=== PATIENT | male | born 1980 | race Caucasian/White ===

== ENCOUNTER 2017-07-12 12:49 | Observation (INO) | payer MEDICAID, SELFPAY ==
[2017-07-12 13:16] VITALS: BMI 24.8
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
[2017-07-12 13:24] VITALS: BMI 24.8
[2017-07-12 13:30] VITALS: BP 114/79; PULSE 54; RESP 18; TEMP 36.7; O2SAT 100
[2017-07-12] MEDS: Buprenorphine HCl 2 MG TAB.SUBL SL ×2 (13:38→21:54)
[2017-07-12] MEDS: LORazepam 1 MG Tablet PO ×3 (13:56→21:54)
[2017-07-12] MEDS: cloNIDine HCl 0.1 MG Tablet 0.2 MG PO (13:56)
[2017-07-12] MEDS: chlordiazePOXIDE 25 MG Capsule PO ×3 (13:57→22:53)
[2017-07-12] MEDS: Ibuprofen 400 MG Tablet 800 MG PO ×2 (14:19→22:52)
[2017-07-12 14:32] LABS: Amphetamine Urine VISTA NEGATIVE (<1000 ng/mL); Barbiturate Urine VISTA NEGATIVE (< 200 ng/mL); Benzodiazepine Urine VISTA NEGATIVE (< 200 ng/mL); Cocaine Urine VISTA POSITIVE (< 300 ng/mL); Ecstacy Urine VISTA NEGATIVE (< 500 ng/mL); Methadone Urine VISTA NEGATIVE (< 300 ng/mL); PCP Urine VISTA NEGATIVE (< 25 ng/mL); THC Urine VISTA POSITIVE (< 50 ng/mL)
[2017-07-12 14:35] LABS: Absolute Lymphocyte Count 1.54 X10^3/ul (0.83-4.51); Basophil# 0.03 X10^3/uL; Basophil% 0.4 % (0-1); Eosinophil# 0.09 X10^3/uL; Eosinophils% 1.1 % (0-5); Hematocrit 43.2 % (40-54); Hemoglobin 14.8 g/dl (13.0-16.5); Lymphocyte # 1.54 X10^3/ul (4.0); Lymphocyte % 18.8 % (19-41); Mean Corp Hgb Conc 34.3 g/gl (32-36); Mean Corpuscular Hgb 29.7 pg (27.0-32.0); Mean Corpuscular Volume 86.7 fL (80-94); Mean Platelet Vol. 8.4 fl (6.2-12.0); Monocyte# 0.56 X10^3/uL; Monocyte% 6.8 % (0-10); Neutrophil # 5.97 X10^3/uL (2.7-7.7); Neutrophil % 72.9 % (47-70); Platelet Count 234 K/mm3 (150-450); RBC Distribution Width CV 14.1 % (11.6-14.6); RBC Distribution Width SD 43.9 fl (35.1-43.9); Red Blood Count 4.98 M/mm3 (4.6-6.2); White Blood Count 8.2 K/mm3 (4.4-11.0)
[2017-07-12 14:37] LABS: POSITIVE COUNT NO; POSITIVE DIFFERENTIAL NO; POSITIVE MORPHOLOGY NO
[2017-07-12 14:40] LABS: Vista UDS pH Range 5
[2017-07-12 15:02] LABS: Alcohol, Blood (Medical)-Serum < 3.0 mg/dL
[2017-07-12 15:08] LABS: ALB/GLOB Ratio 0.8 RATIO (0.9-2.4); AST(SGOT) 28 U/L (15-37); Alanine Aminotransfer ALT/SGPT 62 U/L (12-78); Albumin, Serum 3.3 g/dL (3.4-5.0); Alkaline Phosphatase 75 U/L (45-117); Anion Gap 8 (5-15); BUN 9 mg/dL (7-18); BUN/Creat Ratio 11.3 RATIO (10-20); Calcium,Total 8.7 mg/dL (8.5-10.1); Chloride 108 mmol/L (98-107); Creatinine, Serum 0.79 mg/dL (0.70-1.30); EST Glomerular Filtration Rate 116 mL/min (>60); Est Glom Filt Rate - Afr Amer 141 mL/min (>60); Estimated Creatinine Clearance 118.53 ml/min; Glucose 114 mg/dL (70-110); Lipase 95 U/L (73-393); Potassium 3.7 mmol/L (3.5-5.1); Protein, Total 7.3 g/dL (6.4-8.2); Sodium Level 140 mmol/L (136-145)
[2017-07-12 15:28] LABS: Phosphorus 3.5 mg/dL (2.5-4.9)
[2017-07-12 15:29] VITALS: O2SAT 98
[2017-07-12] MEDS: Methocarbamol 750 MG Tablet PO ×2 (15:43→22:53)
[2017-07-12] MEDS: Carbidopa/Levodopa 25/100 Tablet PO (15:43)
[2017-07-12] MEDS: QUEtiapine 25 MG Tablet PO ×2 (16:04→22:53)
[2017-07-12] MEDS: Pramipexole Di-HCl 0.25 MG Tablet PO (16:23)
[2017-07-12 18:00] VITALS: BP 139/95; PULSE 90; RESP 18; TEMP 36.7
[2017-07-12 18:01] VITALS: BP 139/95; PULSE 96; RESP 18; TEMP 36.7; O2SAT 95
[2017-07-12] MEDS: cloNIDine HCl 0.1 MG Tablet PO ×2 (18:04→22:53)
[2017-07-12 19:53] VITALS: PULSE 99; RESP 20
[2017-07-12] MEDS: Ipratropium/Albuterol Sulfate 3 ML AMPUL.NEB INHALATION (19:53)
[2017-07-12 21:51] VITALS: BP 144/109; PULSE 86; RESP 18; TEMP 36.8
[2017-07-12] MEDS: traZODone 50 MG Tablet PO (22:52)
[2017-07-13] MEDS: LORazepam 1 MG Tablet PO ×4 (01:12→15:33)
[2017-07-13] MEDS: Carbidopa/Levodopa 25/100 Tablet PO (01:12)
[2017-07-13 02:10] VITALS: BP 134/91; PULSE 81; RESP 18; TEMP 36.3
[2017-07-13] MEDS: chlordiazePOXIDE 25 MG Capsule PO ×3 (02:10→09:51)
[2017-07-13] MEDS: cloNIDine HCl 0.1 MG Tablet PO ×4 (02:10→15:33)
[2017-07-13] MEDS: Methocarbamol 750 MG Tablet PO ×2 (05:18→10:00)
[2017-07-13] MEDS: Pramipexole Di-HCl 0.25 MG Tablet PO (05:18)
[2017-07-13] MEDS: Buprenorphine HCl 2 MG TAB.SUBL SL ×2 (05:18→13:07)
[2017-07-13 06:16] VITALS: BP 131/99; PULSE 69; RESP 16; TEMP 36.3
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
[2017-07-13 09:00] VITALS: RESP 18
[2017-07-13] MEDS: Folic Acid 1 MG Tablet PO (09:52)
[2017-07-13] MEDS: Thiamine Hydrochloride 100 MG Tablet PO (09:52)
[2017-07-13] MEDS: Multivitamins,Ther W-Minerals Tablet 1 TABLET PO (09:52)
[2017-07-13 10:00] VITALS: BP 133/66; BP 133/96; PULSE 74; RESP 18; TEMP 36.6; O2SAT 98
[2017-07-13] MEDS: Ibuprofen 400 MG Tablet 800 MG PO (10:00)
[2017-07-13] MEDS: Ketorolac 30 MG/ML Syringe IM (13:08)
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
--- NOTE | 2017-07-13 15:05 | CHAPLAIN ---
Type of Pastoral Visit _x__ Initial Visit ___ Follow-up Visit ___ On-call Visit ___ General Patient Visit ___ Spiritual Assessment ___ Family Conference ___ Bereavement ___ Rapid Response ___ Code Blue ___ Other (describe below) Pastoral Care Referral From _x__ Patient ___ Family ___ Nurse ___ Physician ___ Brim Blocker ___ Comic Artist ___ Other (describe below) Sacrament/Intervention _x__ Active listening ___ Anointing ___ Hindu ___ Bereavement ___ Communion _x__ Deborah exploration ___ _x__ Life review _x__ Prayer ___ Reconciliation ___ Sacrament of Sick _x__ Supportive presence ___ Wedding ___ Other (describe below) Pastoral Comments patient called this entertainer or variety artist on the hospital phone to request a visit; pt is met and he begins with his life story and long history of hospitalizations and drug use, both prescribed and illegal; pt is seeking spiritual help to combat his addiction; pt has an ex and children but they are estranged; pt does have a good friend that will give him housing and a job after discharge; pt also has a sikhism connection which he hopes will continue support after release; pt has anxiety; pt asks questions about prayer directed to this entertainer or variety artist; entertainer or variety artist offers input and verses from hymns that are appropriate for questions pt asks; pt requests prayer and support of another visit;
--- NOTE | 2017-07-13 15:38 | NURSING ---
Pt up and ambulating in hallways. Noted missing from room when this nurse rounded on him at 1400 hrs. Pt was seen changing clothes in lobby and was later seen in parking lot walking about. Return to floor , [facility] personnel notified and physician is notified. Pt is discharged. Per discussion pt was notified he is not suppose to leave floor due to high risk of using and needs to be under medical management.
[2017-07-13 18:11] LABS: HIV 1/0/2 SCREEN 4TH GEN Non Reactive (Non Reactive)
== END 2017-07-13 16:15 | disposition left against medical advice (07) | DRG 773 ==
LOC: MS2 04-01 12:58
PROVIDERS: Admitting Provider Family Medicine; Visit Provider Family Medicine
DX: F11.23 Opioid dependence with withdrawal (principal); F10.239 Alcohol dependence with withdrawal, unspecified; B18.2 Chronic viral hepatitis C; F17.210 Nicotine dependence, cigarettes, uncomplicated; G89.29 Other chronic pain; M54.9 Dorsalgia, unspecified; F32.9 Major depressive disorder, single episode, unspecified; F41.9 Anxiety disorder, unspecified; F14.10 Cocaine abuse, uncomplicated; Z87.828 Personal history of other (healed) physical injury and trauma; J45.909 Unspecified asthma, uncomplicated
CPT/HCPCS: 80053; 80307; 80320; 83690; 83735; 84100; 85025; 86703; 93005; 94640; 97802; 99218; G0378; G0379; G0480